=== PATIENT | female | born 1960 | race Caucasian/White ===

== ENCOUNTER → 2021-01-06 09:00 | Outpatient (BNVA) | payer BC, SELFPAY | PROVIDERS: PCP Family Medicine; Visit Provider Hospitalist ==

== ENCOUNTER 2022-11-22 12:20 | Outpatient (REF) | payer OTHER, SELFPAY ==
--- NOTE | ~2022-11-22 | XR_ITS ---
EXAMINATION: XR KNEE, LEFT XR KNEE AP STANDING CLINICAL INFORMATION: Pain. COMPARISON: None available. TECHNIQUE: Lateral and axial views of the left knee were obtained. AP bilateral standing view of the knees was obtained. FINDINGS: Bony alignment and mineralization are normal. The bilateral lateral and medial joint space compartments are well-maintained. No varus or valgus configuration is seen bilaterally. The left patellofemoral compartment is well-maintained. There is trace peripheral osteophyte formation of the left medial and patellofemoral joint space compartments. No fracture or dislocation is seen. There is no left knee joint effusion. No foreign body is seen. XR/XR knee LT 2V IMPRESSION: 1. There is trace minimal osteoarthritic change of the left medial and patellofemoral joint space compartments. 2. No unusual degenerative change is seen of the right knee. 3. No fracture, dislocation or left knee joint effusion is seen. 4. There is no bilateral varus or valgus configuration.
--- NOTE | ~2022-11-22 | XR_ITS ---
EXAMINATION: XR KNEE, LEFT XR KNEE AP STANDING CLINICAL INFORMATION: Pain. COMPARISON: None available. TECHNIQUE: Lateral and axial views of the left knee were obtained. AP bilateral standing view of the knees was obtained. FINDINGS: Bony alignment and mineralization are normal. The bilateral lateral and medial joint space compartments are well-maintained. No varus or valgus configuration is seen bilaterally. The left patellofemoral compartment is well-maintained. There is trace peripheral osteophyte formation of the left medial and patellofemoral joint space compartments. No fracture or dislocation is seen. There is no left knee joint effusion. No foreign body is seen. XR/XR knee standing BI IMPRESSION: 1. There is trace minimal osteoarthritic change of the left medial and patellofemoral joint space compartments. 2. No unusual degenerative change is seen of the right knee. 3. No fracture, dislocation or left knee joint effusion is seen. 4. There is no bilateral varus or valgus configuration.
== END 2022-11-22 12:21 | disposition home or self-care (01) ==
LOC: HO.HOSX 12:20
PROVIDERS: Visit Provider Orthopaedic Surgery
DX: M25.462 Effusion, left knee (principal)
CPT/HCPCS: 73560; 73565